=== PATIENT | male | born 1945 ===

== ENCOUNTER 2017-03-14 09:15 | Outpatient (CLI) | payer OTHER ==
[~2017-03-14 09:15] MED LIST: ACID CONTROLLER20 MG; AMLOD-VALSA-HC1 EAC4; FOLIC ACID1 MG; INSPRA50 MG; OMEPRAZOLE40 MG; SINGULAIR 10MG10 MG; ZOCOR40 MG
== END 2017-03-14 15:44 | disposition home or self-care (01) ==
LOC: TOM 09:15
DX: I11.9 Hypertensive heart disease without heart failure (principal); R51 Headache

== ENCOUNTER 2017-03-14 09:33 | Outpatient (CLI) | payer OTHER | END 2017-03-14 15:44 | disposition home or self-care (01) | LOC: RAD 09:33 | DX: M15.0 Primary generalized (osteo)arthritis (principal) ==

== ENCOUNTER 2017-07-29 14:18 | Outpatient (CLI) | payer OTHER | END 2017-07-29 14:26 | disposition home or self-care (01) | LOC: TOM 14:18 | DX: J32.9 Chronic sinusitis, unspecified (principal); J34.2 Deviated nasal septum ==

== ENCOUNTER → 2018-11-21 11:48 | Outpatient (CLI) | payer OTHER | END | disposition home or self-care (01) | LOC: RAD 11:48 | DX: M25.511 Pain in right shoulder (principal) ==

== ENCOUNTER 2019-08-10 10:27 | Outpatient (CLI) | payer OTHER | END 2019-08-10 10:31 | disposition home or self-care (01) | LOC: RAD 10:27 | PROVIDERS: ATTEND Physical Medicine & Rehabilitation | DX: M24.551 Contracture, right hip (principal); M24.552 Contracture, left hip ==

== ENCOUNTER 2021-07-31 11:29 | Outpatient (CLI) | payer OTHER | END 2021-07-31 11:42 | disposition home or self-care (01) | LOC: RAD 11:29 | PROVIDERS: ATTEND Internal Medicine Pulmonary Disease | DX: R06.00 Dyspnea, unspecified (principal); G47.33 Obstructive sleep apnea (adult) (pediatric); J30.9 Allergic rhinitis, unspecified ==

== ENCOUNTER 2022-12-13 12:00 | Outpatient (CLI) | payer OTHER | END 2022-12-13 12:04 | disposition home or self-care (01) | LOC: SONOGRAMA 12:00 | PROVIDERS: ATTEND Family Medicine | DX: M79.601 Pain in right arm (principal); Z88.1 Allergy status to other antibiotic agents ==

== ENCOUNTER 2023-05-07 11:57 | Outpatient (CLI) | payer OTHER | END 2023-05-07 12:05 | disposition home or self-care (01) | LOC: RAD 11:57 | PROVIDERS: ATTEND Physical Medicine & Rehabilitation | DX: M54.12 Radiculopathy, cervical region (principal); M54.17 Radiculopathy, lumbosacral region ==

== ENCOUNTER 2023-12-11 12:11 | Outpatient (CLI) | payer OTHER | END 2023-12-11 12:22 | disposition home or self-care (01) | LOC: RAD 12:11 | PROVIDERS: ATTEND Physical Medicine & Rehabilitation | DX: M25.552 Pain in left hip (principal) ==

== ENCOUNTER 2024-01-22 12:40 | Outpatient (CLI) | payer OTHER | END 2024-01-22 12:46 | disposition home or self-care (01) | LOC: RAD 12:40 | PROVIDERS: ATTEND Physical Medicine & Rehabilitation | DX: M54.6 Pain in thoracic spine (principal); M54.59 Other low back pain ==

== ENCOUNTER 2024-02-19 13:53 | Outpatient (CLI) | payer OTHER | END 2024-02-19 13:57 | disposition home or self-care (01) | LOC: RAD 13:53 | PROVIDERS: ATTEND Family Medicine | DX: R05.9 Cough, unspecified (principal) ==